=== PATIENT | male | born 1990 ===

== ENCOUNTER 2020-06-22 13:58 | Emergency (ER) | payer SELFPAY ==
[2020-06-22] MEDS ORDERED: dexAMETHasone 20 MG/5 ML VIAL IV ONE (14:29)
[2020-06-22] MEDS ORDERED: SODIUM CHLORIDE 0.9% 1000 ML 1,000 ML IV ONE (14:29)
[2020-06-22] MEDS ORDERED: FAMOTIDINE 20 MG/2 ML INJ IV ONE (14:29)
[2020-06-22] MEDS ORDERED: diphenhydrAMINE 50 MG/ML VIAL IV ONE (14:29)
--- NOTE | 2020-06-22 14:30 | Emergency Department Report ---
Blank Doc - Documentation Documentation: 30-year-old male that presents with allergic reaction from being stung by a bee earlier today. Exam: uvula midline. no tongue swelling. right earlobe swelling. diffuse hives noted. This initial assessment/diagnostic orders/clinical plan/treatment(s) is/are subject to change based on patient's health status, clinical progression and re- assessment by fellow clinical providers in the ED. Further treatment and workup at subsequent clinical providers discretion. Patient/guardians urged not to elope from the ED as their condition may be serious if not clinically assessed and managed. Initial orders include: 1- Patient sent to [facility] for further evaluation and treatment 2- treatment ordered monogram technician notified to have patient brought by JOHNNY.
[2020-06-22 16:44] VITALS: BP 147/88
--- NOTE | 2020-06-22 17:12 | Emergency Department Report ---
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 Patient states that he was stung by a yellow jacket to the abdomen around 2:30 PM today. He states about 5 minutes later his face began to swell and he had hives diffusely. Patient states he has never been stung by a yellow jacket before. He has no known allergies at all. He denies any tongue swelling, difficulty swallowing, sensation of throat closing, shortness of breath. Patient was given IV Decadron, IV Benadryl, IV Pepcid prior to my examination and patient states that he now feels completely better and that the rash and facial swelling has all resolved. He has no past medical history. No allergies to medications. - Related Data Previous Rx's Medication Instructions Recorded Last Taken Type EPINEPHrine [Epipen 2-Henry] 0.3 mg IJ ONCE PRN #1 auto.injct 06/22/20 Unknown Rx Famotidine [Pepcid] 40 mg PO QHS #10 tablet 06/22/20 Unknown Rx Prednisone [predniSONE 10 mg 10 mg PO .TAPER #1 tab.ds.pk 06/22/20 Unknown Rx (6-Day Pack, 21 Tabs)] diphenhydrAMINE [Benadryl CAP] 50 mg PO Q8HR PRN #12 capsule 06/22/20 Unknown Rx Allergies Allergy/AdvReac Type Severity Reaction Status Date / Time bee venom protein (honey bee) Allergy Anaphylaxis Verified 06/22/20 14:27 ED Review of Systems ROS: Stated complaint: FACIAL SWELLING/BUMPS Other details as noted in HPI Comment: All other systems reviewed and negative ED Past Medical Hx - Past Medical History Previous Medical History?: No - Surgical History Past Surgical History?: No - Social History Smoking Status: Never Smoker Substance Use Type: None - Medications Home Medications: Home Medications Medication Instructions Recorded Confirmed Last Taken Type EPINEPHrine [Epipen 2-Henry] 0.3 mg IJ ONCE PRN #1 auto.injct 06/22/20 Unknown Rx Famotidine [Pepcid] 40 mg PO QHS #10 tablet 06/22/20 Unknown Rx Prednisone [predniSONE 10 mg 10 mg PO .TAPER #1 tab.ds.pk 06/22/20 Unknown Rx (6-Day Pack, 21 Tabs)] diphenhydrAMINE [Benadryl CAP] 50 mg PO Q8HR PRN #12 capsule 06/22/20 Unknown Rx ED Physical Exam - General Limitations: Language Barrier General appearance: alert, in no apparent distress - Head Head exam: Present: atraumatic, normocephalic - Eye Eye exam: Present: normal appearance - ENT ENT exam: Present: mucous membranes moist, other (no angioedema, no facial edema, no lip edema, no tongue edema, uvula is midline, no uvular edema or deviation ) - Respiratory Respiratory exam: Present: normal lung sounds bilaterally. Absent: respiratory distress, wheezes, rales, rhonchi, stridor, chest wall tenderness, accessory muscle use, decreased breath sounds, prolonged expiratory - Cardiovascular Cardiovascular Exam: Present: regular rate, normal rhythm, normal heart sounds. Absent: systolic murmur, diastolic murmur, rubs, gallop - Neurological Exam Neurological exam: Present: alert, oriented X3 - Psychiatric Psychiatric exam: Present: normal affect, normal mood - Skin Skin exam: Present: warm, dry, intact. Absent: rash, urticaria ED Course Vital Signs 06/22/20 06/22/20 14:48 16:43 Temperature 98.3 F Pulse Rate 106 H Respiratory 20 16 Rate Blood Pressure 147/88 [Left] O2 Sat by Pulse 95 97 Oximetry ED Medical Decision Making - Lab Data Vital Signs 06/22/20 06/22/20 14:48 16:43 Temperature 98.3 F Pulse Rate 106 H Respiratory 20 16 Rate Blood Pressure 147/88 [Left] O2 Sat by Pulse 95 97 Oximetry - Medical Decision Making security Art used for taiwanese interpretation Patient is a 30-year-old male who presents emergency room with complaints of allergic reaction that occurred just prior to arrival. Patient states that he was stung by a yellow jacket to the abdomen around 2:30 PM today. He states about 5 minutes later his face began to swell and he had hives diffusely. Patie nt states he has never been stung by a yellow jacket before. He has no known allergies at all. He denies any tongue swelling, difficulty swallowing, sensation of throat closing, shortness of breath. Patient was given IV Decadron, IV Benadryl, IV Pepcid prior to my examination and patient states that he now feels completely better and that the rash and facial swelling has all resolved. He has no past medical history. No allergies to medications. Vitals are stable. Patient first examined by triage provider and was found to have hives and mild facial swelling, he was given normal saline, IV dexamethasone, IV Pepcid, IV Benadryl. On my examination urticaria has completely resolved, there is no facial swelling, no signs of angioedema, no stridor, clear breath sounds bilaterally, no wheezing, no rales, no rhonchi. Patient was observed in the emergency department for a couple of hours symptom-free. Patient given prescription for prednisone, Pepcid, Benadryl, EpiPen. Advised patient please use medication as prescribed. Please carry EpiPen with you at all times. If you ever get stung again please administer the EpiPen as the directions say and immediately come to the emergency room or call 911. Follow-up with your primary care doctor for reexamination. Return to emergency room immediately for any new or worsening symptoms. Critical care attestation.: If time is entered above; I have spent that time in minutes in the direct care of this critically ill patient, excluding procedure time. ED Disposition Clinical Impression: Allergic reaction Qualifiers: Encounter type: initial encounter Qualified Code(s): T78.40XA - Allergy, unspecified, initial encounter Angioedema Qualifiers: Encounter type: initial encounter Qualified Code(s): T78.3XXA - Angioneurotic edema, initial encounter Anaphylaxis Qualifiers: Encounter type: initial encounter Qualified Code(s): T78.2XXA - Anaphylactic shock, unspecified, initial encounter Disposition: DC-01 TO HOME OR SELFCARE Is pt being admited?: No Does the pt Need Aspirin: No Condition: Stable Instructions: Anaphylaxis (ED), Angioedema (ED) Additional Instructions: Please use medication as prescribed. Please carry EpiPen with you at all times. If you ever get stung again please administer the EpiPen as the directions say and immediately come to the emergency room or call 911. Follow-up with your [facility] care doctor for reexamination. Return to emergency room immediately for any new or worsening symptoms. Utilice los medicamentos segn lo prescrito. Lleve consigo EpiPen en todo momento. Si alguna vez le pican de nuevo, administre el EpiPen ankita dicen las instrucciones y acuda de inmediato a la loan de emergencias o llame al 911. Alphonso un seguimiento con giles mdico de atencin primaria para un nuevo examen. Regrese a la loan de emergencias de inmediato ante cualquier sntoma nuevo o que empeore. Prescriptions: Famotidine [Pepcid] 40 mg PO QHS #10 tablet diphenhydrAMINE [Benadryl CAP] 50 mg PO Q8HR PRN #12 capsule PRN Reason: itching EPINEPHrine [Epipen 2-Henry] 0.3 mg IJ ONCE PRN #1 auto.injct PRN Reason: Anaphylaxis Prednisone [predniSONE 10 mg (6-Day Pack, 21 Tabs)] 10 mg PO .TAPER #1 tab.ds.pk Referrals: PRIMARY CARE,MD [Primary Care Provider] - 2-3 Days Time of Disposition: 17:12 Print Language: THAI
== END 2020-06-22 17:44 | disposition home or self-care (01) ==
LOC: ED 13:58
DX: T78.40XA Allergy, unspecified, initial encounter (principal); T78.3XXA Angioneurotic edema, initial encounter; T78.2XXA Anaphylactic shock, unspecified, initial encounter; X58.XXXA Exposure to other specified factors, initial encounter; Y93.89 Activity, other specified; Y92.89 Other specified places as the place of occurrence of the external cause; Y99.8 Other external cause status
CPT/HCPCS: 96361; 96374; 96375; 99282; J1100; J1200; J7030